=== PATIENT | female | born 1950 | race Caucasian/White ===

== ENCOUNTER 2018-02-12 22:53 | Emergency (ER) | payer OTHER ==
[~2018-02-12] VITALS: Ht 170.2 cm; Wt 77.3 kg
[2018-02-12 23:03] VITALS: TEMP 99.7
[2018-02-12] MEDS ORDERED: NEURONTIN300 MG/CAP PO (23:34)
[2018-02-12] MEDS ORDERED: PROAIR HFA0.09 MG/AC IH (23:35)
[2018-02-12] MEDS ORDERED: IPRATROPIUM BROM3 M1 IH (23:35)
[2018-02-12] MEDS ORDERED: ZYLOPRIM 100MG100 MG PO (23:36)
[2018-02-12] MEDS ORDERED: DYMISTA1 SPR NS (23:36)
[2018-02-12] MEDS ORDERED: LIPITOR 40MG TA40 MG PO (23:36)
[2018-02-12] MEDS ORDERED: ASPIRIN 81M81 MG/TA2 PO (23:36)
[2018-02-12] MEDS ORDERED: CALCIUM CARB W/1 TA1 PO (23:36)
[2018-02-12 23:37] LABS: COLLECTION METHOD CLEAN CATCH
[2018-02-12] MEDS ORDERED: TEMOVATE0.05% TP (23:37)
[2018-02-12] MEDS ORDERED: ZYRTEC10MGSGL (23:37)
[2018-02-12] MEDS ORDERED: COREG 6.256.25 MG/TA PO (23:37)
[2018-02-12] MEDS ORDERED: PLAVIX 75MG TAB75 MG PO (23:37)
[2018-02-12] MEDS ORDERED: THE MEDICINE S200 M2 PO (23:38)
[2018-02-12] MEDS ORDERED: VOLTAREN GEL 1%1 TU TP (23:39)
[2018-02-12] MEDS ORDERED: CRANBERRY500 M3 PO (23:39)
[2018-02-12] MEDS ORDERED: EPIPEN 2-PAK1 MG/ML IM (23:39)
[2018-02-12] MEDS ORDERED: EPA FISH OIL1 SGL PO (23:39)
[2018-02-12] MEDS ORDERED: LIDODERM 5% PATC1 EA TP (23:40)
[2018-02-12] MEDS ORDERED: ZESTRIL 20MG TA20 MG PO (23:40)
[2018-02-12] MEDS ORDERED: DULERA1 ARO IH (23:40)
[2018-02-12] MEDS ORDERED: CULTURELLE IMM1 EACH PO (23:40)
[2018-02-12] MEDS ORDERED: PRILOSEC 20MG20 MG PO (23:41)
[2018-02-12] MEDS ORDERED: JANUVIA 100MG100 MG PO (23:41)
[2018-02-12] MEDS ORDERED: PHARMASSURE ZIN50 MG PO (23:41)
[2018-02-12] MEDS ORDERED: SINGULAIR 110 MG/TAB PO (23:41)
[2018-02-12 23:49] LABS: PH 7 (5-8); URINE APPEARANCE Turbid; URINE BACTERIA None Seen /hpf; URINE BILIRUBIN Negative (NEGATIVE); URINE BLOOD 3+ (NEGATIVE); URINE COLOR Yellow; URINE GLUCOSE Negative (NEGATIVE); URINE KETONE Negative (NEGATIVE); URINE LEUKOCYTE ESTERASE 3+ (NEGATIVE); URINE NITRATE Negative (NEGATIVE); URINE PROTEIN(semi-quant) 2+ (NEGATIVE); URINE RBC >50 /hpf; URINE UROBILINOGEN Negative (NEGATIVE)
[2018-02-13 00:25] LABS: COLLECTION METHOD CLEAN CATCH
[2018-02-13] MEDS ORDERED: OMNICEF 300MG300 MG PO (00:44)
[2018-02-13] MEDS ORDERED: PYRIDIUM200 M1 PO (00:44)
[2018-02-13 00:45] LABS: MUCOUS Present /lpf; PH 6 (5-8); SQUAMOUS EPITHELIAL None Seen /hpf; URINE APPEARANCE Cloudy; URINE BACTERIA Moderate /hpf; URINE BILIRUBIN Negative (NEGATIVE); URINE BLOOD 3+ (NEGATIVE); URINE COLOR Yellow; URINE GLUCOSE Negative (NEGATIVE); URINE KETONE Negative (NEGATIVE); URINE LEUKOCYTE ESTERASE 3+ (NEGATIVE); URINE NITRATE Positive (NEGATIVE); URINE PROTEIN(semi-quant) 2+ (NEGATIVE); URINE RBC >50 /hpf; URINE UROBILINOGEN Negative (NEGATIVE)
[2018-02-13 01:25] VITALS: BP 166/92; PULSE 82
== END 2018-02-13 01:26 | disposition home or self-care (01) ==
LOC: COL.ER 22:53
PROVIDERS: Emergency Medicine
DX: N30.90 Cystitis, unspecified without hematuria (principal); E11.9 Type 2 diabetes mellitus without complications; I25.10 Atherosclerotic heart disease of native coronary artery without angina pectoris; I10 Essential (primary) hypertension; E78.00 Pure hypercholesterolemia, unspecified; Z95.5 Presence of coronary angioplasty implant and graft; Z79.82 Long term (current) use of aspirin; Z79.02 Long term (current) use of antithrombotics/antiplatelets; Z79.52 Long term (current) use of systemic steroids
CPT/HCPCS: J0696